=== PATIENT | female | born 1955 | race Caucasian/White ===

== ENCOUNTER → 2018-08-07 | Outpatient (CLI) | payer BC ==
[~2018-08-07] MED LIST: ASPI81EC; B Complex1 EAC2 PO; CHOL10002; CO Q PO; Daily Multiple1 EACH; Femring1 EAC1 VG; MINIVELLE1 EAC1 TD; OMEG1CAP30; Vitamin C1000 M1 PO
[2018-08-09 15:07] LABS: HPV 16 Negative (Negative); HPV 18 Negative (Negative); HPV OTHER HR TYPES Negative (Negative)
== END | disposition home or self-care (01) ==
LOC: LAB 17:57 → LAB SHORT 17:57
PROVIDERS: Obstetrics & Gynecology Gynecology
DX: Z12.72 Encounter for screening for malignant neoplasm of vagina (principal)
CPT/HCPCS: 87624; G0123

== ENCOUNTER → 2019-06-23 | Outpatient (CLI) | payer BC | END | disposition home or self-care (01) | LOC: LAB FUT 05-01 08:55 → LAB 09:03 → LAB SHORT 09:03 | DX: L08.0 Pyoderma (principal) | CPT/HCPCS: 87070; 87205 ==

== ENCOUNTER → 2019-08-19 | Outpatient (CLI) | payer BC ==
[2019-08-21 13:07] LABS: HPV 16 Negative (Negative); HPV 18 Negative (Negative); HPV OTHER HR TYPES Negative (Negative)
== END | disposition home or self-care (01) ==
LOC: LAB 12:30 → LAB SHORT 12:30
PROVIDERS: Obstetrics & Gynecology Gynecology
DX: Z12.72 Encounter for screening for malignant neoplasm of vagina (principal)
CPT/HCPCS: 87624; G0123

== ENCOUNTER 2020-02-06 08:21 | Day surgery (SDC) | payer BC ==
[~2020-02-06] VITALS: Ht 162.6 cm; Wt 78.4 kg
[2020-02-06] MEDS ORDERED: SERT50 PO (08:40)
--- NOTE | 2020-02-06 09:45 | NUR ---
02/06/20 0904 Zunilda Abreu [facility] BROUGHT IN TO HELP WITH BXS. TWO FORCEPS USED
== END 2020-02-06 10:25 | disposition home or self-care (01) ==
LOC: ORSCSDS 08:21
PROVIDERS: Internal Medicine Gastroenterology
PROC: 0DBM8ZX Excision of Descending Colon, Via Natural or Artificial Opening Endoscopic, Diagnostic (ICD-10-PCS; principal; 2020-02-06 09:45)
PROC: 0DBN8ZX Excision of Sigmoid Colon, Via Natural or Artificial Opening Endoscopic, Diagnostic (ICD-10-PCS; principal; 2020-02-06 09:45)
PROC: 0DBH8ZX Excision of Cecum, Via Natural or Artificial Opening Endoscopic, Diagnostic (ICD-10-PCS; principal; 2020-02-06 09:45)
PROC: 0DJ08ZZ Inspection of Upper Intestinal Tract, Via Natural or Artificial Opening Endoscopic (ICD-10-PCS; principal; 2020-02-06 09:45)
PROC: 0DBL8ZX Excision of Transverse Colon, Via Natural or Artificial Opening Endoscopic, Diagnostic (ICD-10-PCS; principal; 2020-02-06 09:45)
PROC: 0D757ZZ Dilation of Esophagus, Via Natural or Artificial Opening (ICD-10-PCS; principal; 2020-02-06 09:45)
PROC: 0DBP8ZX Excision of Rectum, Via Natural or Artificial Opening Endoscopic, Diagnostic (ICD-10-PCS; principal; 2020-02-06 09:45)
DX: K50.90 Crohn's disease, unspecified, without complications (principal); K21.9 Gastro-esophageal reflux disease without esophagitis; R13.10 Dysphagia, unspecified; R10.9 Unspecified abdominal pain; Z86.010 Personal history of colon polyps; D12.3 Benign neoplasm of transverse colon; D12.0 Benign neoplasm of cecum; K63.89 Other specified diseases of intestine; K22.2 Esophageal obstruction; K44.9 Diaphragmatic hernia without obstruction or gangrene; K57.30 Diverticulosis of large intestine without perforation or abscess without bleeding; K64.8 Other hemorrhoids; Z79.899 Other long term (current) drug therapy
CPT/HCPCS: 88305; J2704; J7120

== ENCOUNTER → 2020-03-09 | Outpatient (CLI) | payer BC, OTHER ==
[~2020-03-09] MED LIST changes: +SERT50 PO
== END | disposition home or self-care (01) ==
LOC: LAB SHORT 06:09 → LAB 06:09
DX: Z01.812 Encounter for preprocedural laboratory examination (principal); Z11.59 Encounter for screening for other viral diseases
CPT/HCPCS: U0002

== ENCOUNTER 2020-11-17 06:06 | Day surgery (SDC) | payer BC ==
[~2020-11-17] VITALS: Ht 162.6 cm; Wt 79.7 kg
[~2020-11-17 06:06] MED LIST changes: +AMBIEN10 MG PO; +ATOR20 PO; +Ativan1 MG PO; +CELE100 PO; -CHOL10002; +MINIVELLE TD; -MINIVELLE1 EAC1 TD; +OMEP20ER PO; +VITAMIN D310 MC4 PO; +Vitamin C100 M1 PO; -Vitamin C1000 M1 PO
--- NOTE | 2020-11-17 07:22 | NUR ---
Ambulatory in Day Surgery History, Chart, Medications and Allergies reviewed before start of procedure. Lungs clear T/O to Auscultation. Pre-Op teaching done. Pt verbalizes understanding.
--- NOTE | 2020-11-17 11:58 | NUR ---
11/17/20 1158 Saige Hirsch LATE ENTRY: X-RAY DURRING PROCEDURE TO CONFIRM PLACEMENT OF IMPLANTS. BONE FRAGMENTS DISCARDED AT END OF CASE PER SURGEON.
--- NOTE | 2020-11-17 17:35 | NUR ---
SHIFT SUMMARY PT HAS DONE WELL BUT DID HAVE AN EPISODE OF EMESIS W/ THERAPY. PAIN WELL CONTROLLED. EATING, DRINKING, & VOIDING.
--- NOTE | 2020-11-18 03:40 | NUR ---
SHIFT SUMMARY POD1 R JAKOB W/ DR. KELLY. PT AOX4. REPORTS NAUSEATED T/O SHIFT. SHE HAD 2 EPISODED OF EMISIS. MEDICATED WITH PHENEGRAN 12.5MG AND REGLAN 10MG LAST NIGHT. PT REFUSE TO TAKE NIGHT MEDS AND PO PAIN MEDS. PT REPORTS PAIN LEVEL BETWEEN 2-4/10. PAIN MANAGED WITH TORADOL. TOLERATING FEW BITES OF HER DAWSON. PT AMBULATING WITH 1 MIN ASSIST WITH FWW AND GB , WB DEYANIRA ON R SIDE. VOIDING ADEQUATELY. LR STILL INFUSING AT 70MLS/HR. PT DENIES NUMBNESS AND TINGLING SENSATION. VSS. DENIES CHEST PAIN AND SOB. CALL LIGHT WITHIN REACH. WILL PROVIDE REPORT TO UPCOMING AM NURSE.
[2020-11-18 04:35] LABS: BASOPHILS ABSOLUTE AUTO 0.01 K/mm3 (0.00-0.23); BASOPHILS PERCENT AUTO 0 % (0-2); EOSINOPHILS PERCENT AUTO 0 % (0-6); Hematocrit 26.9 % (33.0-51.0); Hemoglobin 9.3 g/dL (11.5-16.0); IMMATURE GRAN ABSOLUTE AUTO 0.04 K/mm3 (0.00-0.10); IMMATURE GRAN PERCENT AUTO 0 % (0-1); LYMPHOCYTES ABSOLUTE AUTO 1.22 K/mm3 (0.84-5.20); LYMPHOCYTES PERCENT AUTO 12 % (21-46); MONOCYTES ABSOLUTE AUTO 0.65 K/mm3 (0.16-1.47); MONOCYTES PERCENT AUTO 7 % (4-13); Mean Corpuscular HGB 31.8 pg (26.0-34.0); Mean Corpuscular HGB Conc 34.6 g/dL (31.5-36.5); Mean Corpuscular Volume 92 fL (80-100); Mean Platelet Volume 9.9 fL (9.1-12.4); NEUTROPHILS ABSOLUTE AUTO 8.15 K/mm3 (1.96-9.15); NEUTROPHILS PERCENT AUTO 81 % (41-73); Platelet Count 185 K/mm3 (150-400); RDW Coefficient Variation 12.6 % (11.7-14.2); RDW Standard Deviation 42.5 fL (35.1-46.3); Red Blood Cell Count 2.92 M/mm3 (3.80-5.20); White Blood Cell Count 10.07 K/mm3 (4.00-11.30)
[2020-11-18 04:53] LABS: Anion Gap 3 mmol/L (6-16); Blood Urea Nitrogen 7 mg/dL (8-24); Bun/Creatinine Ratio 15.7 (12.0-20.0); CO2, Blood 31 mmol/L (21-32); Chloride, Blood 97 mmol/L (98-108); Creatinine, Blood 0.45 mg/dL (0.40-1.00); Glomerular Filtration Rate >60 (60-); Glucose, Blood 120 mg/dL (70-99); Magnesium, Blood 1.7 mg/dL (1.6-2.4); Potassium, Blood 3.8 mmol/L (3.5-5.5); Sodium, Blood 131 mmol/L (136-145)
--- NOTE | 2020-11-18 07:49 | NUR ---
to radiology via wheelchair
--- NOTE | 2020-11-18 08:05 | NUR ---
RETURNED TO ROOM FROM RADIOLOGY
[2020-11-18] MEDS ORDERED: ENOX40I SC (09:25)
[2020-11-18] MEDS ORDERED: ROXICODONE5 MG PO (09:27)
[2020-11-18] MEDS ORDERED: PROM25 PO (09:28)
[2020-11-18] MEDS ORDERED: SULTRIDS PO (09:29)
[2020-11-18] MEDS ORDERED: Aspirin EC81 MG PO (10:19)
--- NOTE | 2020-11-18 11:11 | NUR ---
1534 DISCHARGE TO HOME WITH . PT REPORTS PAIN IS CONTROLLED. PT REPORTS SOME NAUSEA BUT FEELS SHE IS READY TO DISCHARGE HOME AND REPORTS THAT HAS MEDS FOR NAUSEA AT HOME. PT AMBULATING WITH STANDBY ASSIST, VOIDING CLEAR YELLOW URINE. TAKING SIPS OF TEA AND CRACKERS.
== END 2020-11-18 11:07 | disposition home or self-care (01) ==
LOC: ORSCMMR 06:06 → ORD 07:30 → ORSCMMR 07:30 → SURS 11:13 → ORSCMMR 11-18 11:07
PROVIDERS: Orthopaedic Surgery
PROC: 0SR90JA Replacement of Right Hip Joint with Synthetic Substitute, Uncemented, Open Approach (ICD-10-PCS; principal; 2020-11-17 07:30)
PROC: 8E0YXBZ Computer Assisted Procedure of Lower Extremity (ICD-10-PCS; principal; 2020-11-17 07:30)
DX: M16.11 Unilateral primary osteoarthritis, right hip (principal); K21.9 Gastro-esophageal reflux disease without esophagitis; Z79.899 Other long term (current) drug therapy
CPT/HCPCS: 36415; 72170; 80048; 83735; 85025; 97110; 97110-CQ; 97116; 97116-CQ; 97162; 97165; 97530; 97530-CQ; 97535; A9270; C1713; C1776; J0171; J0690; J0735; J1100; J1650; J1885; J2250; J2370; J2405; J2550; J2704; J2765; J2795; J3010; J3370; J7120

== ENCOUNTER 2022-12-27 10:31 | Day surgery (SDC) | payer BC ==
[~2022-12-27] VITALS: Ht 162.6 cm; Wt 80.1 kg
[~2022-12-27 10:31] MED LIST changes: +Aspirin EC81 MG PO; +ENOX40I SC; +PROM25 PO; +ROXICODONE5 MG PO; +SULTRIDS PO
[2022-12-27] MEDS ORDERED: OZEMPIC2 MG/0.75 (11:02)
[2022-12-27] MEDS ORDERED: SERT100 (11:03)
[2022-12-27 13:19] VITALS: BP 101/72
== END 2022-12-27 13:16 | disposition home or self-care (01) ==
LOC: ORSCSDS 10:31
PROVIDERS: Internal Medicine Gastroenterology
PROC: 0DBB8ZX Excision of Ileum, Via Natural or Artificial Opening Endoscopic, Diagnostic (ICD-10-PCS; principal; 2022-12-27 13:00)
PROC: 0DJ08ZZ Inspection of Upper Intestinal Tract, Via Natural or Artificial Opening Endoscopic (ICD-10-PCS; principal; 2022-12-27 13:00)
PROC: 0DBE8ZX Excision of Large Intestine, Via Natural or Artificial Opening Endoscopic, Diagnostic (ICD-10-PCS; principal; 2022-12-27 13:00)
DX: R10.84 Generalized abdominal pain (principal); K50.90 Crohn's disease, unspecified, without complications; Z86.010 Personal history of colon polyps; Z87.898 Personal history of other specified conditions; Z87.11 Personal history of peptic ulcer disease; K44.9 Diaphragmatic hernia without obstruction or gangrene; K64.4 Residual hemorrhoidal skin tags; E78.00 Pure hypercholesterolemia, unspecified; F41.9 Anxiety disorder, unspecified; F90.9 Attention-deficit hyperactivity disorder, unspecified type; Z79.899 Other long term (current) drug therapy
CPT/HCPCS: 88305; J2250; J2704; J7120

== ENCOUNTER 2025-07-14 06:34 | Day surgery (SDC) | payer BC ==
[~2025-07-14] VITALS: Ht 160 cm; Wt 57.7 kg
[~2025-07-14 06:34] MED LIST changes: +OZEMPIC2 MG/0.75; +SERT100
[2025-07-14] MEDS ORDERED: CELE100 (07:11)
[2025-07-14] MEDS ORDERED: FEMRING (07:18)
[2025-07-14] MEDS ORDERED: LINZESS72 MCG (07:18)
[2025-07-14] MEDS ORDERED: COQMAX UBIQUIN100 MG (07:19)
[2025-07-14 09:30] VITALS: BP 105/67
== END 2025-07-14 09:45 | disposition home or self-care (01) ==
LOC: ORSCSDS 06:34
PROVIDERS: Internal Medicine Gastroenterology
PROC: 0DBG8ZX Excision of Left Large Intestine, Via Natural or Artificial Opening Endoscopic, Diagnostic (ICD-10-PCS; principal; 2025-07-14 08:15)
PROC: 0DBB8ZX Excision of Ileum, Via Natural or Artificial Opening Endoscopic, Diagnostic (ICD-10-PCS; principal; 2025-07-14 08:15)
PROC: 0DJ08ZZ Inspection of Upper Intestinal Tract, Via Natural or Artificial Opening Endoscopic (ICD-10-PCS; principal; 2025-07-14 08:15)
PROC: 0DBF8ZX Excision of Right Large Intestine, Via Natural or Artificial Opening Endoscopic, Diagnostic (ICD-10-PCS; principal; 2025-07-14 08:15)
DX: K21.9 Gastro-esophageal reflux disease without esophagitis (principal); K44.9 Diaphragmatic hernia without obstruction or gangrene; K50.90 Crohn's disease, unspecified, without complications; K64.4 Residual hemorrhoidal skin tags; K57.30 Diverticulosis of large intestine without perforation or abscess without bleeding; F41.9 Anxiety disorder, unspecified; F90.9 Attention-deficit hyperactivity disorder, unspecified type; E78.00 Pure hypercholesterolemia, unspecified; Z79.899 Other long term (current) drug therapy
CPT/HCPCS: 88305; J2704; J7120